=== PATIENT | female | born 1935 | race Caucasian/White ===

== ENCOUNTER 2017-08-10 11:35 | Observation (INO) ==
--- OUTSIDE RECORDS SUMMARY | 2017-08-10 12:10 | External Medical Summary | Referral Summary ---
:1935 Author Organization [facility] Address [address] [place] [address] BUBBA Packer [phone] Care Team Providers Name Role Phone Christina Carrolljessica Barlow Primary Care Physician Encounter VC Date(s): 06/16/15 - 06/16/15 [facility] [address] [place] [address] BUBBA Packer [phone] Discharge Diagnosis: Seborrheic keratoses Discharge Diagnosis: Malignant melanoma of lower leg Discharge Diagnosis: Skin nodule Discharge Diagnosis: Malignant melanoma of skin of right lower leg Discharge Disposition: 01-Home or Self Care Attending Physician: Royce Lincoln MD Admitting Physician: Royce Lincoln MD Referring Physician: Huber Perez MD Vital Signs Most recent to oldest [Reference Range]: 1 Temperature Tympanic [36.6-38.1 degC] 37.1 degC (06/16/15 3:28 PM) Blood Pressure [90-140/60-90 mmHg] 136/80 mmHg (06/16/15 3:28 PM) Problem List Condition Effective Dates Status Health Status Informant arthritis(Confirmed) Resolved Arthritis(Confirmed) Active Carpal tunnel syndrome(Confirmed) Active Carpal tunnel syndrome(Confirmed) Active Cataracts(Confirmed) Active Cervical disk Active degeneration(Confirmed) Cervical radiculitis - Active Upper(Confirmed) Cervical spondylosis w/o Active myelopathy(Confirmed) Cervicalgia - Neck Pain(Confirmed) Active Chronic pain syndrome Active (disorder)(Confirmed) Cubital tunnel syndrome(Confirmed) Active Degenerative thoracic disc Active disease(Confirmed) Displacement of lumbar Active intervertebral disc without myelopathy (disorder)(Confirmed) Diverticulosis of colon(Confirmed) Active Essential hypertension Active (disorder)(Confirmed) Foot drop - Right LOwer Resolved Extremity(Confirmed) Hereditary and idiopathic peripheral Active neuropathy (disorder)(Confirmed) Herniated cervical disc without Active myelopathy(Confirmed) Herniated lumbar disc without Active myelopathy(Confirmed) Herniated thoracic disc without Active myelopathy(Confirmed) Hypercholesterolemia(Confirmed) Active Hypertension(Confirmed) Active Hypo-osmolality and or hyponatremia Active (disorder)(Confirmed) Low back pain (finding)(Confirmed) Active Lumbar disk degeneration(Confirmed) Active Lumbar spondylosis w/o Active myelopathy(Confirmed) Skin melanoma(Confirmed) < 07/08/15 Resolved Measles(Confirmed) Active Morbid obesity(Confirmed) Active Thoracic Lumbar Active radiculitis(Confirmed) Numbness and tingling of Active foot(Confirmed) Obesity (disorder)(Confirmed) Active Obesity(Confirmed) Active patient Obstructive sleep apnea syndrome Active (disorder)(Confirmed) Peripheral neuropathy(Confirmed) Active pinched nerve in back(Confirmed) Resolved Pure hypercholesterolemia Active (disorder)(Confirmed) Rheumatic fever(Confirmed) Active right open carpal tunnel Resolved release(Confirmed)1 Shoulder joint pain Active (finding)(Confirmed) Bilateral shoulder pain/ Subacromial Active Bursitis, Rotator cuff(Confirmed) Spinal stenosis in cervical region Active (disorder)(Confirmed) Spinal stenosis in cervical Active region(Confirmed) Spinal stenosis of lumbar region Active (disorder)(Confirmed) Spinal stenosis of lumbar Active region(Confirmed) Spondylisthesis(Confirmed) Active Bursitis, subacromial(Confirmed) Active Thoracic spondylosis w/o Active myelopathy(Confirmed) Varicose Veins, Left Leg(Confirmed) Active 1Global Dates: 02/28/14-05/29/14 Allergies, Adverse Reactions, Alerts No Known Medication Allergies Medications aspirin 81 mg oral tablet 1 tabs, Oral, Daily, 0 Refill(s) Start Date: 01/20/14 Status: Ordereddocusate sodium 100 mg, Oral, TID, 0 Refill(s) Start Date: 01/20/14 Status: OrderedDULoxetine 60 mg oral delayed release capsule See Instructions, 1 caps Oral Daily,x60 days,Instr:Please make appt for next refill., # 60 caps, 2 Refill(s), eRx: [facility], 1 caps Oral Daily,x60 days,Instr:Please make appt for next refill. Start Date: 08/19/15 Status: Orderedgabapentin 300 mg oral capsule See Instructions, TAKE 1 CAPSULE BY MOUTH DAILY, # 90 caps, eRx: [facility], TAKE 1 CAPSULE BY MOUTH DAILY Start Date: 11/12/15 Status: OrderedNorco 7.5 mg-325 mg oral tablet 1 tabs, Oral, q4hr, as needed for pain, # 75 tabs, 0 Refill(s) Start Date: 11/11/15 Status: Orderedsenna 15 mg oral tablet 30 mg 2 tabs, Oral, Daily, as needed for constipation, # 100 tabs, 0 Refill(s), other reason (Rx) Start Date: 06/05/15 Stop Date: 06/05/16 Status: Orderedsimvastatin 40 mg oral tablet See Instructions, TAKE ONE-HALF TABLET BY MOUTH DAILY, # 45 tabs, eRx: [facility], TAKE ONE-HALF TABLET BY MOUTH DAILY Start Date: 11/19/15 Status: OrderedTylenol Caplet 325 mg oral tablet 650 mg 2 tabs, Oral, q4hr, # 1 tabs, 0 Refill(s), other reason (Rx) Start Date: 06/05/15 Stop Date: 06/05/16 Status: Ordered Results No data available for this section Immunizations Vaccine Date Refusal Reason influenza virus vaccine, inactivated 06/05/15 influenza virus vaccine, inactivated1 05/26/14 influenza virus vaccine, live 05/22/13 influenza virus vaccine, live 05/21/12 pneumococcal 13-valent conjugate vaccine 06/05/15 pneumococcal 23-polyvalent vaccine 08/03/09 tetanus-diphth toxoids (Td) adult/adol 05/30/06 1Result Comment: [05/26/2014] see scanned note Procedures Procedure Date Related Diagnosis Body Site Colonoscopy and biopsy of colon 06/29/15 Excision, malignant lesion including margins, 06/16/15 trunk, arms, or legs; excised diameter 0.6 to 1.0 cm.. Left L4-5/L5-S1 Transforaminal 02/04/15 Left L4-5/ L5-S1 Transforaminal approach 01/01/14 Left L4-5/L5-S1 Transforaminal approach 10/09/13 Cataract extraction 2013 L4-5 / L5-S1 Transforaminal approach 07/08/13 Left L4-5/ L5-S1 Transforaminal approach 04/08/13 Lt L4-S1 Radio,1 01/02/13 Left L4-5/L5-Z7Tilsugagvswfwr approach 12/18/12 Left L4-5/ L5-S1 Transforaminal approach 08/29/12 Carpal tunnel release - Left 2013 Decompression Median Nerve Left 2013 Lt L5-S1 and S1 Transforaminal approach2 06/12/12 Cataract extraction 2012 Colectomy3 2009 Colonoscopy4 2006 SOBIA BSO - Total abdominal hysterectomy and 1982 bilateral salpingo-oophorectomy Cervical5 Hysterectomy Lt Cataract Repair Multiple Transforaminal Injection Repair Colovag Fistula RIGHT SHOULDER INJECTION 1A. [id number] NextGen3"ruptured bowel"4Due in [address]Mpu Conversion Document Social History Social History Type Response Smoking Status Never smoker Assessment and Plan Extracted from: Title: Office Visit Note Author: Royce Lincoln MD Date: 06/16/15 Assessment/Plan 1.Malignant melanoma of lower leg Ordered: Office Visit Level 4 [place] [address] 2.Seborrheic keratoses 3.Skin nodule Plan: Excisional Biopsy of a Skin Lesion Adjacent to Prior Incision Suspicious to Rule OutLocally Metastatic Melanoma/Satellite Nodule. Await Pending Radiographic Results. Return to Office at One Week Interval to Discuss Further Recommendations. I did review the patient's chart includinga pathology report from her excisional biopsy from June 08, 2015. Patient unfortunately was found to have a thick melanomaof 4.68 mm extending to the lateral margin of the excision. Reviewed office note from PCP from June 05and 2014. Reviewed PET scan results from June 12, 2015. Was a questionable area noted within theright lobe of the liver and CT scan was recommended. Questionable area of increased activity also noted within rectum. Inform the patient that unfortunately she was found to have a fairly thick melanoma upon her excisional biopsy. I informed the patient that also unfortunately it does appearfrom a physical examination standpoint that she has locally metastatic melanoma to the surrounding skin. I recommended therefore that we go ahead and excise one of the small nodularity surrounding her initialincision siteto rule outregional metastatic malignant melanoma/satellite disease.Patient understood and wished to proceed. The area just distal to her original incision site was prepped with Betadine. One percent lidocaine with epinephrine was injectedcircumferentially around a small skin lesion that was on the order about 6 mm in diameter. This skin lesion/ nodularity was excisedin its entirety in elliptical fashion and passed off table as surgical specimen. Hemostasis obtai jodee with electrocautery. Incision closed by placing several simple and her up sutures of30 Prolene. Patient tolerated this without difficulty. Next I discussedmalignant melanoma as an entity with the patient in the generalsurgical recommendations for the management ofmalignant melanoma. I informed the patient that as a general rule witha thick melanoma greater than 4 mmonewould recommend reexcision with a 2 cm marginin conjunction with a sentinel lymph node biopsy.I informed the patient that I would like to see h er back at a one week intervalto go over her upcomingradiographic results as well as thepathology result from today'sbiopsy.
[2017-08-10 12:14] VITALS: BMI 34.9
[2017-08-10] MEDS ORDERED: INSULIN ASPART 100unit/ml INJECTION SQ ONE (13:41)
--- NOTE | 2017-08-10 13:49 | History & Physical Report ---
History of Present Illness Date: 08/10/17 Chief complaint: Elevated BS HPI: Patient is an 82-year-old female who comes as a direct admit from 'lito Carroll' s office with a diagnosis of diabetes mellitus. Her blood sugar in the office 2 days ago was in the 600s. She's been checking her blood sugar for the last few days and it has been 400-500s. She is having some polydipsia and polyuria and feels weak. She's had a 6 pound weight loss in the last week. She lives alone. Her daughter lives close to her and is a nurse and also has diabetes, so will be able to help her manage her diabetes. Patient has melanoma and reports she is currently on immunotherapy through Dr. Perez's office. Patient was seen sitting in bed. Her daughter is present. Patient states she feels well. She has been trying to follow a diabetic diet since her diagnosis of diabetes 2 days ago. She has not yet been started on medication. She had a lesion removed on her left lower leg yesterday by Dr. Sauceda. Review of Systems All systems PM: 10-point ROS was reviewed, no additional remarkable complaints except (polydipsia, polyuria, weakness, dry mouth, weight loss) Past Medical History Family History Updates: Reviewed Medications Home Medications Medication Instructions Recorded Confirmed Type Sennosides [Senna] 8.6 mg PO DAILY PRN #0 tab 06/26/15 08/10/17 History Simvastatin 0.5 tab PO HS #0 06/26/15 08/10/17 History Acetaminophen [Tylenol Extra 1 - 2 tab PO Q6H PRN #0 tab 06/29/15 08/10/17 History Strength] Aspirin [Aspir 81] 1 tab PO DAILY #0 tab 07/15/15 08/10/17 History Duloxetine HCl 1 cap PO DAILY #0 cap 07/20/16 08/10/17 History Hydrocodone/Acetaminophen 0.5 tab PO Q4H PRN #0 tab 07/20/16 08/10/17 History [Hydrocodon-Acetaminoph 7.5-300] raNITIdine HCl [Ranitidine HCl] 150 mg PO HS #0 tab 07/20/16 08/10/17 History Inulin/Chromium Picolinate [Fiber 1 each PO DAILY 06/02/17 08/10/17 History Gummies] Hydrocodone/APAP 5/325 [[place] 1 tab PO Q5H PRN 08/10/17 08/10/17 History 5/325] Allergies Allergy/AdvReac Type Severity Reaction Status Date / Time No Known Allergies Allergy Unverified 07/21/16 08:15 Exam Vital Signs: Temperature 98.4 F 08/10/17 11:58 Pulse Rate 83 08/10/17 11:58 Respiratory Rate 14 08/10/17 11:58 Blood Pressure 155/68 H 08/10/17 11:58 Pulse Oximetry 96 08/10/17 11:58 Height/Weight/BMI: Height 1.7 m Weight 101.3 kg Body Mass Index 34.9 - Constitutional Present: no acute distress, well nourished, well developed, obese - Routine HEENT Exam Head: Present: normocephalic, atraumatic Eye: Present: EOMI ENT: Present: mucous membranes dry, oropharynx clear - Routine Neck Exam Present: supple. Absent: lymphadenopathy, thyromegaly - Routine Respiratory Exam Present: CTA bilaterally. Absent: wheezes - Routine Cardiovascular Exam Present: RRR. Absent: murmur - Routine Abdominal Exam Present: soft, normoactive bowel sounds, non distended. Absent: tenderness - Routine Extremities Exam Present: no edema, normal capillary refill Comments: Scarring to right leg from previous biopsies. Left lower leg with Kerlix dressing covering biopsy site. 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 Sauceda and HTN -no meds Hypercholesterolemia -continue statin ANDRÉS -declines use of CPAP Neuropathy -Continue gabapentin Chronic pain -Continue Cymbalta and [place] PPx:SCD's Code: Full code PCP: Dr. Carroll Case discussed with Dr. Pereira - Physician Narrative Narrative: S: Pt reports doing well. Denies any n/v/d, f/c, cp or sob. O: Cards: RRR without murmurs Lungs: CTAB without wheezes A/P: Pt has newly diagnosed type II DM. Will start on oral hyperglycemic agents as she is 82 and has metastatic melanoma. Her a1c goal should be around 7.5-8 and she is currently 8.5. Her metformin will need to be titrated in the next couple of weeks. Date: 08/10/17 Time: 1900 Hospital Course Summary Disclaimer: The visit summary below is not to be considered part of the above Progress Note. 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 Novolog 4 units now. -Accu-Cheks -Diabetic ed consult Metastatic melanoma -Follows with Dr. Sauceda and HTN -no meds Hypercholesterolemia -continue statin ANDRÉS -declines use of CPAP Neuropathy -Continue gabapentin Chronic pain -Continue Cymbalta and [place]oul[place] PPx:SCD's Code: Full code PCP: Dr. Carroll Case discussed with Dr. Pereira
[2017-08-10] MEDS ORDERED: ACETAMINOPHEN 500 MG TABLET PO PRN (14:03)
[2017-08-10] MEDS ORDERED: HYDROCODONE/APAP 7.5 MG/325 MG TABLET PO PRN (14:03)
[2017-08-10] MEDS ORDERED: SENNOSIDES 8.6 MG TABLET PO PRN (14:03)
[2017-08-10] MEDS: METFORMIN 500 MG TABLET PO SCH (14:28)
[2017-08-10 16:04] VITALS: RESP 16; TEMP 98.5
[2017-08-10] MEDS ORDERED: SIMVASTATIN 40 MG TABLET PO SCH (21:00)
[2017-08-10] MEDS ORDERED: RANITIDINE 150 MG TABLET PO SCH (21:00)
[2017-08-10] MEDS ORDERED: GABAPENTIN 300 MG CAPSULE PO SCH (21:00)
[2017-08-10] MEDS: HYDROCODONE/APAP 5mg/325mg TABLET PO PRN (21:16)
[2017-08-11 08:57] VITALS: BP 157/95; PULSE 78; O2SAT 97
[2017-08-11] MEDS ORDERED: ASPIRIN *EC* 81 MG TABLET PO SCH (09:00)
[2017-08-11] MEDS ORDERED: DULOXETINE 60 MG CAPSULE PO SCH (09:00)
[2017-08-11] MEDS: HYDROCODONE/APAP 5mg/325mg TABLET PO PRN (09:35)
[2017-08-11] MEDS: METFORMIN 500 MG TABLET PO SCH (09:36)
[2017-08-11] MEDS ORDERED: INSULIN ASPART 100unit/ml INJECTION SQ ONE (09:46)
--- NOTE | 2017-08-11 11:53 | Discharge Summary ---
Discharge Information Date of admission: 08/10/17 11:35 Anticipated date of discharge: 08/11/17 Attending Physician: Dorina Pereira MD Primary care physician: MD Augustin Hayden MD Consults: 08/10/17 Hotel Reservation Agent Consult [Inpatient Diabetic Consult] [CONS] Routine Diabetic Diagnosis: Other Diabetic Training: Disease Process Monitoring Diabetes Carb Counting - Discharge Diagnosis (1) Type 2 diabetes mellitus Status: Acute new diagnosis of Type 2 diabetes - Laboratory Labs: Laboratory Tests 08/10/17 08/11/17 13:50 04:12 WBC 9.5 RBC 4.86 Hgb 14.6 Hct 43.3 Plt Count 237 Sodium 136 Potassium 3.8 Chloride 101 BUN 18.0 H Creatinine 0.8 Glucose 347 H Calcium 10.1 Laboratory Tests 08/10/17 15:26 Urine Color Yellow Urine Clarity Clear Urine pH 6.0 Ur Specific [place] 1.020 Urine Protein Negative Urine Glucose (UA) 3+ A Urine Ketones 3+ A Urine Occult Blood Negative Urine Nitrate Negative Urine Bilirubin 1+ A Urine Urobilinogen 0.2 Ur Leukocyte Esterase Negative History of Present Illness HPI: Patient is an 82-year-old female who comes as a direct admit from Dr.'s Carroll' s office with a diagnosis of diabetes mellitus. Her blood sugar in the office 2 days ago was in the 600s. She's been checking her blood sugar for the last few days and it has been 400-500s. She is having some polydipsia and polyuria and feels weak. She's had a 6 pound weight loss in the last week. She lives alone. Her daughter lives close to her and is a nurse and also has diabetes, so will be able to help her manage her diabetes. Patient has melanoma and reports she is currently on immunotherapy through Dr. Perez's office. Patient was seen sitting in bed. Her daughter is present. Patient states she feels well. She has been trying to follow a diabetic diet since her diagnosis of diabetes 2 days ago. She has not yet been started on medication. She had a lesion removed on her left lower leg yesterday by Dr. Sauceda. Objective Vital signs: Temperature 98.5 F 08/10/17 16:00 Pulse Rate 78 08/11/17 08:51 Respiratory Rate 16 08/11/17 08:51 Blood Pressure 157/95 H 08/11/17 08:51 Pulse Oximetry 97 08/11/17 08:51 Height/Weight/BMI: Height 1.7 m Weight 103 kg Body Mass Index 34.9 - Constitutional Present: no acute distress, well nourished, well developed - Routine Respiratory Exam Present: CTA bilaterally. Absent: wheezes - Routine Cardiovascular Exam Present: RRR. Absent: murmur - Routine Abdominal Exam Present: soft, normoactive bowel sounds, non distended. Absent: tenderness - Routine Extremities Exam Present: no edema, normal capillary refill - Routine Skin Exam Present: dry, warm - Routine Neurological Exam Present: alert, oriented X3, CN II-XII intact - Routine Lymphatic Exam Lymphatic: Absent: adenopathy - Routine Psychiatric Exam Present: normal affect, cooperative Hospital Course This is a general summary of the patient's hospital course. For more details refer to the complete medical record. Hospital course: Patient was admitted and started on metformin. Was given Novolog 4 U on day of admission and 5 U on day of discharge. Her BS's have steadily decreased. She is tolerating the metformin. Discussed with patient her BS's should continue to slowly improve and she'll need close f-u with her PCP to adjust dosing of metformin. She had some diabetic education while she was hospitalized. She will need an antihypertensive medication based on her BP's during her stay. Will leave this to her PCP. Time spent with patient: greater than 35 minutes DVT Prophylaxis: SCD's Discharge Plan - Discharge Disposition Discharge Date: 08/11/17 Disposition: 01 Discharged Home, Self-Care *Condition: Stable Reason For Visit (Visit label in EMR): elevated blood sugar - Discharge Medications *Discharge Medications: New Metformin [Glucophage] 500 mg PO BID #60 tab Continue Simvastatin 0.5 tab PO HS #0 Hydrocodone/Acetaminophen [Hydrocodon-Acetaminoph 7.5-300] 0.5 tab PO Q4H PRN #0 tab PRN Reason: Pain raNITIdine HCl [Ranitidine HCl] 150 mg PO HS #0 tab Inulin/Chromium Picolinate [Fiber Gummies] 1 each PO DAILY Aspirin [Aspir 81] 1 tab PO DAILY #0 tab Duloxetine HCl 1 cap PO DAILY #0 cap Gabapentin [Neurontin] 300 mg PO HS cap Hydrocodone/APAP 5/325 [[place]erril 5/325] 1 tab PO Q5H PRN PRN Reason: Pain No Action Sennosides [Senna] 8.6 mg PO DAILY PRN #0 tab PRN Reason: CONSTIPATION Acetaminophen [Tylenol Extra Strength] 1 - 2 tab PO Q6H PRN #0 tab PRN Reason: PAIN - Discharge Packet/Instructions *Diet: diabetic diet *Activity: as tolerated *Pain Management/Treatment: per Dr. Carroll *Wound Care: n/a Additional Instructions: Take metformin before breakfast and supper. Check blood sugars first thing in the morning and 2 hours after meals. Take blood sugar log with you to your follow up appointment with Dr. Carroll. *Expected Signs/Symptoms: continued improvement in blood sugars *Notify Physician if: you have blood sugars consistently >375 *During Business Hours Contact: Dr Carroll's office *After Business Hours Contact: Dr Carroll's office and follow after hours instructions *Pending Lab/Results: No Pending Lab - Referrals/Follow Up *Referrals/Follow Up: Augustin Carroll MD [Primary Care Provider] - 1 Week - Patient Handouts Physician Narrative - Narrative Attestation Narrative: Date: 08/11/17 Time: 7744
[2017-08-11] MEDS ORDERED: METFORMIN 500 MG TABLET PO SCH (13:38)
== END 2017-08-11 14:15 | disposition home or self-care (01) ==
LOC: MED
PROVIDERS: ADMIT Internal Medicine; ATTEND Internal Medicine